=== PATIENT | female | born 1960 | race Caucasian/White ===

== ENCOUNTER 2020-07-29 11:09 | Inpatient (IN) | payer OTHER, MEDICARE ==
[~2020-07-29] VITALS: Ht 167.6 cm; Wt 87.7 kg
--- NOTE | ~2020-07-29 | HC ---
[facility] [place] [address] CONSULTATION Name: BRIANNA CERVANTES Room #: 215-P [facility] IN M.R.#: [id number] Admission: 07/29/20 Attend Phys: Pancho Renteria MD Discharge: 07/31/20 Date of : 60 Report #: [id number] THIS REPORT FOR: cc: [facility] - Clinic physician unknown [facility] - Clinic physician unknown Serafin Cherry MD ~ DOC #: [id number] cc: Pancho Renteria MD, Isabel Childers, CRISTAL Cherry MD DATE OF SERVICE: 07/30/2020 REASON FOR CONSULT: History of metastatic breast cancer and weakness and fall. HISTORY OF PRESENT ILLNESS: The patient is a very pleasant 59-year-old patient of [employer] who is on ixabepilone chemotherapy, who received her most recent dose on 07/21/2020. She had called the office reporting that she has been weaker this last week, more than usual, had been falling having trouble to get up, had scraped her knee and also when she fell evulsed the toenail off of one of her toes and was not sure if it might be broken. We have suggested she come to the emergency room for evaluation. I received a call from the nurse practitioner. The nurse practitioner reported her hemoglobin around 7. The patient was very weak. We discussed possible admission for transfusion and IV fluids and consult rehab services. The patient is now seen the following day after those events from yesterday. The patient denies any headache, any vision changes, any swallowing changes, any fevers or chills, any blood in her urine or stool, any diarrhea or constipation. She does have the generalized weakness. It is not one arm or one leg or left or right side. She described that it does not sound like vertigo or low blood pressure, orthostatic type change. She does still have a sore knee and also sore toe. We note that the x-rays did not reveal any fractures or evidence of osteomyelitis being suggested. She also did receive a unit of blood. Her hemoglobin is now 8. She also has a low white count of 0.6 yesterday and 0.8 today. Past history is notable for the history of metastatic breast cancer since her original diagnosis in 2012 and she was at stage IV diagnosis. She had mets to the brain at the time of diagnosis in 2012. She has been on numerous hormonal agents and chemotherapy agents. She has received radiation therapy to the pelvis in the past. She also has a history of TIA in 2018. Also, has trouble peripheral edema that may have been related to Gemzar. History of diabetes in the past. History of hyperlipidemia. SOCIAL HISTORY: Not currently working. Has a very supportive family. [facility] [address] [place] [address] CONSULTATION Name: BRIANNA CERVANTES Room #: 215-P [facility] IN M.R.#: [id number] Admission: 07/29/20 Attend Phys: Pancho Renteria MD Discharge: 07/31/20 Date of : 60 Report #: [id number] FAMILY HISTORY: With regard to her breast cancer, the patient is also receiving Xgeva for her bones in addition to the ixabepilone. MEDICATIONS: In the hospital currently include pantoprazole 40 mg daily, Lovenox 40 mg daily subcutaneous. Sodium chloride IV fluid. Lortab p.r.n., Tylenol p.r.n., MiraLax p.r.n., Zofran p.r.n., DVT injection, I believe was given. PHYSICAL EXAMINATION: VITAL SIGNS: Height is 5 feet 6 or 167.6 cm, weight 184 pounds or 83.5 kg, blood pressure 145/81, O2 sat 100%, respirations 18, pulse 82, temperature 97. T-max since admission was 99.6. Neurologically, speech and thought patterns normal. Moving upper extremities normally. LUNGS: Clear, without rhonchi, rales or wheezes. Symmetric and unlabored. HEART: Regular rate. NECK: No enlarged lymph nodes in the supraclavicular, cervical, axillary or inguinal region. ABDOMEN: Slightly obese. No masses. EXTREMITIES: Without clubbing, cyanosis. There is a dressing on her knee and her foot. LABORATORY DATA: Here notable for the repeat hemoglobin after , platelets 99, white count 0.8, BUN 8, creatinine 0.7. Liver functions normal. ASSESSMENT AND PLAN: 1. Metastatic breast cancer, on ixabepilone responding, might delay therapy, pending weakness recovery. 2. Anemia. We will check iron, B12, folate, retic count to see if the patient to see if the patient might benefit from Aranesp administration. 3. Neutropenia, should probably consider neutropenic precautions. 4. Thrombocytopenia, most likely due to chemotherapy. Continue serial monitoring. 5. History of lipids. Cholesterol medicines as needed. 6. Weakness. We will most likely see if the patient can ambulate after transfusion with rehabilitation services; if not, may need to consider rehabilitation services or home health. We will follow with you. MD SALVADOR Darling/DANNI/SUBHASH [address] [address] CONSULTATION Name: BRIANNA CERVANTES Room #: 215-P [facility] IN M.R.#: [id number] Admission: 07/29/20 Attend Phys: Pancho Renteria MD Discharge: 07/31/20 Date of : 60 Report #: [id number] By: [id number] [id number] Serafin Cherry MD /nt
[~2020-07-29 11:09] MED LIST: CALCIUM 500 +1 EAC5 PO; CELEXA 10 MG TA10 M1 PO; FISH OIL 1,0001 EAC5 PO; GLUCOPHAGE500 MG PO; LIPITOR 10 MG10 M1 PO; MULTIVITAMINS PO; SINGULAIR 10 MG10 M1 PO; VERAMYST10 GM NS
[2020-07-29 11:12] VITALS: BP 87/53
[2020-07-29 12:37] LABS: ANION GAP 9 mmol/L (7-16); BUN 16 mg/dL (7-18); CALCIUM 8.5 mg/dL (8.5-10.1); CHLORIDE 102 mmol/L (98-107); CO2 24 mmol/L (21-32); CREATININE 0.9 mg/dL (0.6-1.0); GLUCOSE 106 mg/dL (74-106); POTASSIUM 4.1 mmol/L (3.5-5.1); SODIUM 135 mmol/L (136-145)
[2020-07-29 12:39] LABS: HEMOGLOBIN 7.1 gm/dL (12.0-15.0)
[2020-07-29 12:41] LABS: MCH 29.2 pg (26.0-34.0); MCHC 33.9 g/dL (28.0-37.0); PLATELET COUNT 113 thou/uL (150-400); RBC 2.45 mil/uL (4.20-5.00); RDW 19.4 % (10.5-14.5)
[2020-07-29 12:46] LABS: ALBUMIN 3.3 g/dL (3.4-5.0); MAGNESIUM 1.9 mg/dL (1.8-2.4); SGOT 24 U/L (15-37); SGPT 20 U/L (30-65); TOTAL BILIRUBIN 0.6 mg/dL (0.2-1.0); TOTAL PROTEIN 7.1 g/dL (6.4-8.2); TROPONIN-I <0.06 ng/mL (<0.06); WBC 0.6 thou/uL (4.0-11.0)
[2020-07-29 13:31] LABS: ABSOLUTE NEUTROPHILS 0.4 thou/uL (1.4-8.2)
[2020-07-29 13:32] LABS: ANISOCYTOSIS 2+; PLATELET ESTIMATE SLIGHTLY DECREASED
[2020-07-29 13:33] LABS: MACROCYTES FEW; MICROCYTES FEW; OVALOCYTES FEW; POIKILOCYTOSIS 1+
[2020-07-29 13:36] LABS: URINE BILIRUBIN NEGATIVE (Negative); URINE BLOOD NEGATIVE (Negative); URINE CLARITY CLEAR; URINE COLOR YELLOW; URINE GLUCOSE-RANDOM* NEGATIVE (Negative); URINE KETONES NEGATIVE (Negative); URINE LEUKOCYTES-REFLEX NEGATIVE (Negative); URINE NITRITE-REFLEX NEGATIVE (Negative); URINE PROTEIN (DIPSTICK) TRACE (Negative); URINE SPECIFIC GRAVITY 1.015 (1.005-1.035); URINE UROBILINOGEN 0.2 E.U./dl (0.2-1.0)
--- NOTE | 2020-07-29 16:05 | EKG ---
[place] [address] [facility] [address] [place] [address] ELECTROCARDIOGRAM REPORT Name: BRIANNA CERVANTES Room #: 170-1 ADM IN M.R.#: [id number] Admission: 07/29/20 Attend Phys: Pancho Renteria MD Discharge: Date of : 60 Report #: [id number] 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 : 1960 Requested By: Lynda Emmanuel Order Number: [id number] MD: Drew Robles Measurements Intervals [place] Rate: 94 P: 26 RI: 166 QRS: 5 QRSD: 65 T: -13 QT: 415 QTc: 520 Interpretive Statements Sinus rhythm Early R wave progression Nonspecific ST and T wave abnormality Prolonged QT interval Compared to ECG 01/14/2012 12:37:27 Early R wave progression is now present Nonspecific change in the ST and T wave segments Prolonged QT interval now present Electronically Signed On 07-29-2020 16:04:45 CDT by Drew Robles [email or web address] <ELECTRONICALLY SIGNED> By: Drew Robles MD, [facility] 07/29/20 1604 1137 1137 Drew Robles MD, [facility] /EPI
[2020-07-29 16:32] VITALS: BP 112/64
[2020-07-29 16:45] VITALS: BP 112/64
[2020-07-29 17:19] VITALS: BP 120/79
[2020-07-29 17:23] VITALS: BP 127/77
[2020-07-29 20:05] VITALS: BP 124/75
[2020-07-30 01:43] LABS: HEMATOCRIT 23.8 % (37.0-47.0); MCH 29.4 pg (26.0-34.0); MCHC 33.7 g/dL (28.0-37.0); MCV 87.4 fL (80.0-100.0); PLATELET COUNT 99 thou/uL (150-400); RBC 2.73 mil/uL (4.20-5.00); RDW 18.1 % (10.5-14.5)
[2020-07-30 01:45] LABS: CALCIUM 8.1 mg/dL (8.5-10.1); CREATININE 0.7 mg/dL (0.6-1.0); MAGNESIUM 1.7 mg/dL (1.8-2.4); POTASSIUM 3.7 mmol/L (3.5-5.1)
[2020-07-30 01:58] LABS: WBC 0.8 thou/uL (4.0-11.0)
[2020-07-30 04:29] LABS: ABSOLUTE NEUTROPHILS 0.5 thou/uL (1.4-8.2); PLATELET ESTIMATE DECREASED
[2020-07-30 04:45] VITALS: BP 127/71
[2020-07-30 08:06] VITALS: BP 145/81
[2020-07-30 08:42] LABS: % SATURATION 32 % (20-39); IRON 50 ug/dL (50-170); TIBC 158 ug/dL (250-450)
[2020-07-30 08:45] LABS: ABSOLUTE RETIC COUNT 0.0093 10^6/uL; OBSERVED RETIC COUNT 0.34 % (0.6-2.6)
[2020-07-30 10:33] VITALS: BP 123/66
--- NOTE | 2020-07-30 13:44 | NUR ---
WOUND CONSULT; ROUNDING WITH DR RAMSEY TODAY. THE PATIENT HAS HAD A TRAUMA TO THE LEFT GREAT TOE MEASURES 1.0 X 1.0 X 0.1. TENDERNESS IS PRESENT. NO S/S OF INFECTION. DR RAMSEY'S RECOMMENDASTIONS; XEROFORM GAUZE, ROLLED GAUZE, SCURED WITH TAPE CHANGE DAILY.
[2020-07-30 15:21] VITALS: BP 124/81
--- NOTE | 2020-07-30 15:36 | NUR ---
met with patient and spouse at bedside. Patient with stage 4 breast cancer. She admits pancytopenia. Patient resides at home with spouse and son. Sp reports assist patient with adls. They assist with ambulation and bathing. Patients PCP has left [facility] and she see practioner Mj only know last name. Discussed post acute care/rehab unit eval. At this time patient, spouse interested in home health. No preference for home health care. Agreeable to home health care with [facility]. Liason to sp with patient/spouse.
[2020-07-30 20:45] VITALS: BP 135/84
[2020-07-31 04:45] VITALS: BP 117/91
[2020-07-31 06:47] LABS: HEMOGLOBIN 8.5 gm/dL (12.0-15.0)
[2020-07-31 06:48] LABS: CALCIUM 8.1 mg/dL (8.5-10.1); CREATININE 0.6 mg/dL (0.6-1.0); POTASSIUM 3.7 mmol/L (3.5-5.1)
[2020-07-31 06:50] LABS: HEMATOCRIT 24.5 % (37.0-47.0); MCH 29.9 pg (26.0-34.0); MCHC 34.8 g/dL (28.0-37.0); MCV 85.9 fL (80.0-100.0); RBC 2.85 mil/uL (4.20-5.00)
[2020-07-31 07:09] LABS: WBC 1.2 thou/uL (4.0-11.0)
--- NOTE | 2020-07-31 07:29 | NUR ---
ASSUME CARE 1900. PT/VITALS STABLE. DENIES PAIN. POOR TOLERANCE TO ACTIVITY. MIGHT BENEFIT FROM REHAB BEFORE GOING HOME. ASSESSMENT CHARTED. PROGRESSING WELL WITH POC. SR ON MONITOR. PLAN IS POSSIBLE DISCHARGE TODAY FOR FOLLOW UP OUTPATIENT. WBC 1.2/TRENDING UP. WILL CONTINUE TO MONITOR AND FOLLOW WITH POC
[2020-07-31 08:09] VITALS: BP 134/81
[2020-07-31 10:37] VITALS: BP 134/81
--- NOTE | 2020-07-31 11:05 | NUR ---
RD consulted for high protein, low sugar snack options. Metastatic breast cancer pt admit with weakness and falls. Pt reports appetite is fair, does not really like food here but was not ordering from alternative menu. Assisted ordering. Pt uses oral supplement at home. Provided snack options and will order Ensure Max bid. Pt hoping to be discharged soon.
[2020-07-31 11:46] VITALS: BP 129/83
--- NOTE | 2020-07-31 12:26 | NUR ---
WOUND CARE F/U; ROUNDING WITH DR RAMSEY. THE PATIENT HAS A TRAUMATIC INJURY TO THE LEFT GREAT TOE. THE TOE WAS FRAGIALLY ATTATCHED AND THEREFORE NON VIABLE. DR RAMSEY REMOVED THE NAIL WITH MINIMAL TRAUMA AND BLEEDING. APPLIED XEROFORM GAUZE, FOAM, SECURED WITH ROLLED GAUZE. CHANGE M/W/F PRN.
--- NOTE | 2020-07-31 13:46 | NUR ---
[facility] is not able to provide service at pt's address in [place], [place]. Referral faxed and called to [facility] and they can accept. Their liason will call pt to introduce themselves and advise on start of care this Tuesday. Dc orders faxed and confirmed with intake. Pt is going home with spouse today and agreeable to the dc plan.
--- NOTE | 2020-08-01 15:50 | HC ---
[facility] [address] CONSULTATION Name: BRIANNA CERVANTES Room #: 215-P [facility] IN M.R.#: [id number] Admission: 07/29/20 Attend Phys: Pancho Renteria MD Discharge: 07/31/20 Date of : 60 Report #: [id number] THIS REPORT FOR: cc: [facility] - Clinic physician unknown [facility] - Clinic physician unknown Demian Romero MD ~ DOC #: [id number] Demian Romero MD DATE OF SERVICE: 07/30/2020 CHIEF COMPLAINT: Injury to the left great toe. HISTORY OF PRESENT ILLNESS: This is a 59-year-old female patient with a history of breast cancer with metastases to brain, bones and to her left hip. She has undergone chemotherapy and last chemo treatment was 07/21/2020. She has had increasing weakness and poor appetite. She fell at home and ended up evulsing the left great toenail. I have been asked to see her with regard to wound care. PAST MEDICAL HISTORY: Positive for metastatic breast cancer as detailed above, history of anemia, hypotension and frequent falls. MEDICATIONS: Metformin, Lipitor, Os-Donald, montelukast, fluticasone and citalopram. ALLERGIES: No known drug allergies. FAMILY HISTORY: Noncontributory. SOCIAL HISTORY: Patient is , accompanied by her . There is no history of alcohol or tobacco use. She is a former smoker. REVIEW OF SYSTEMS: CONSTITUTIONAL: The patient denies fever, chills or weight loss. NEUROLOGICAL: The patient denies focal weakness, tingling. EYES: The patient denies any visual changes, sinus drainage. ENT: The patient denies earache, nasal drainage, or sore throat. CARDIOVASCULAR: The patient denies chest pain, palpitations, diaphoresis. PULMONARY: The patient denies cough, shortness of breath. GASTROINTESTINAL: The patient denies nausea, vomiting, diarrhea or abdominal pain. NEUROLOGIC: The patient does have pain, avulsion of the left great toenail. Other systems in a 14-point review of systems are negative. PHYSICAL EXAMINATION: VITAL SIGNS: Patient's vital signs at this time include temperature 36.3, pulse [facility] [address] [place] [address] CONSULTATION Name: BRIANNA CERVANTES Room #: [address] [place] [address] [place] [facility].#: [id number] Admission: 07/29/20 Attend Phys: Pancho Renteria MD Discharge: 07/31/20 Date of : 60 Report #: [id number], respiratory rate 18, blood pressure 123/66. GENERAL: This is a well-developed female. The patient appears to be in no distress. HEENT: Head normocephalic. Nose and throat are clear. NECK: Supple. ABDOMEN: Soft. Bowel sounds present. EXTREMITIES: Lower extremities demonstrated easily palpable distal pulses. She has a small avulsion-type injury to the tip of the left great toe as well as the toenail was partially avulsed, although appears to be adherent at this time. I have trimmed the loose epidermis away with iris scissors, which she tolerated well. LABORATORY DATA: Include sodium 134, potassium 3.7, chloride 102, CO2 of 23, BUN 8, creatinine 0.7, glucose 101. White blood cell count 0.8 with a hemoglobin of 8.0. CLINICAL IMPRESSION: 1. Avulsion injury to the left great toe and great toenail with loose skin trimmed. 2. Pancytopenia. 3. Hypertension. 4. History of breast cancer with metastases to back, hip, and brain. RECOMMENDATIONS: At this point in time, we will recommend topical bacitracin, Xeroform gauze, Alexandr gauze daily. May consider removal of the toenail if it becomes looser. I appreciate being asked to see her in consultation. MD LANDON Escalera/LAZARO <ELECTRONICALLY SIGNED> By: Demian Romero MD 08/01/20 1550 1041 0228 Demian Romero MD /nt
== END 2020-07-31 14:00 | disposition home health service (06) | DRG 809 ==
LOC: ER 11:09 → EROBS 15:34 → 2N 15:34
PROVIDERS: Internal Medicine Hematology & Oncology; Nurse Practitioner; Nurse Practitioner Family; ADMIT Hospitalist; ATTEND Hospitalist
PROC: 30233N1 Transfusion of Nonautologous Red Blood Cells into Peripheral Vein, Percutaneous Approach (ICD-10-PCS; principal; 2020-07-29)
DX: D61.810 Antineoplastic chemotherapy induced pancytopenia (principal); D84.89 Other immunodeficiencies; R65.10 Systemic inflammatory response syndrome (SIRS) of non-infectious origin without acute organ dysfunction; C50.919 Malignant neoplasm of unspecified site of unspecified female breast; Z20.822 Contact with and (suspected) exposure to COVID-19; E11.9 Type 2 diabetes mellitus without complications; F12.90 Cannabis use, unspecified, uncomplicated; S91.209A Unspecified open wound of unspecified toe(s) with damage to nail, initial encounter; M25.462 Effusion, left knee; S90.112A Contusion of left great toe without damage to nail, initial encounter; I95.9 Hypotension, unspecified; I10 Essential (primary) hypertension; E78.5 Hyperlipidemia, unspecified; Z87.891 Personal history of nicotine dependence; Z86.73 Personal history of transient ischemic attack (TIA), and cerebral infarction without residual deficits; Z23 Encounter for immunization; W18.39XA Other fall on same level, initial encounter; Y93.89 Activity, other specified; Y92.89 Other specified places as the place of occurrence of the external cause; Y99.8 Other external cause status
CPT/HCPCS: 10081

== ENCOUNTER 2020-09-06 10:27 | Emergency (ER) | payer OTHER, MEDICARE ==
[~2020-09-06] VITALS: Ht 170.2 cm; Wt 83.9 kg
[2020-09-06 12:50] VITALS: BP 131/104
== END 2020-09-06 12:50 | disposition home or self-care (01) ==
LOC: ER 10:27
DX: S80.11XA Contusion of right lower leg, initial encounter (principal); S20.211A Contusion of right front wall of thorax, initial encounter; Z85.3 Personal history of malignant neoplasm of breast; Z90.89 Acquired absence of other organs; Z87.891 Personal history of nicotine dependence; W19.XXXA Unspecified fall, initial encounter; Y93.89 Activity, other specified; Y92.89 Other specified places as the place of occurrence of the external cause; Y99.8 Other external cause status

== ENCOUNTER 2021-04-01 15:18 | Inpatient (IN) | payer OTHER, MEDICARE ==
[~2021-04-01] VITALS: Ht 152.4 cm; Wt 74.9 kg
[2021-04-01 15:19] VITALS: BP 120/75
[2021-04-01 16:09] LABS: HEMATOCRIT 31.4 % (37.0-47.0); HEMOGLOBIN 10.3 gm/dL (12.0-15.0); MCH 27.7 pg (26.0-34.0); MCHC 32.7 g/dL (28.0-37.0); MCV 84.9 fL (80.0-100.0); RBC 3.7 mil/uL (4.20-5.00); RDW 16.1 % (10.5-14.5); WBC 4.2 thou/uL (4.0-11.0)
[2021-04-01 16:22] LABS: ANION GAP 10 mmol/L (7-16); BUN 11 mg/dL (7-18); CALCIUM 8.9 mg/dL (8.5-10.1); CHLORIDE 106 mmol/L (98-107); CO2 24 mmol/L (21-32); CREATININE 0.6 mg/dL (0.6-1.0); GLUCOSE 103 mg/dL (74-106); POTASSIUM 3.8 mmol/L (3.5-5.1); SODIUM 140 mmol/L (136-145)
[2021-04-01 16:33] LABS: ALBUMIN 3.3 g/dL (3.4-5.0); MAGNESIUM 1.7 mg/dL (1.8-2.4); PHOSPHORUS 4.2 mg/dL (2.6-4.7); SALICYLATE < 2.8 mg/dL (2.8-20.0); SGOT 22 U/L (15-37); SGPT 18 U/L (14-59); TOTAL BILIRUBIN 0.2 mg/dL (0.2-1.0); TOTAL PROTEIN 7.2 g/dL (6.4-8.2)
[2021-04-01 23:07] VITALS: BP 110/77
--- NOTE | 2021-04-01 23:11 | NUR ---
Pt care assumed. Pt confused, but able to answer simple questions occasionally yells when no one in room. Vitals stable. Pt scheduled for surgery in AM.
[2021-04-02 02:46] VITALS: BP 136/79
--- NOTE | 2021-04-02 07:43 | EKG ---
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 : 1960 Requested By: Hai Mann Order Number: [id number] MD: Elie Soria Measurements Intervals [place] Rate: 74 P: 39 UT: 176 QRS: 1 QRSD: 104 T: 4 QT: 417 QTc: 463 Interpretive Statements Sinus rhythm Low voltage, precordial leads Compared to ECG 07/29/2020 11:37:56 Low QRS voltage now present Poor R-wave progression no longer present ST (T wave) deviation no longer present Prolonged QT interval no longer present Electronically Signed On 04-02-2021 7:43:32 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 /EPI
[2021-04-02 08:19] VITALS: BP 154/96
[2021-04-02 11:26] LABS: URINE BILIRUBIN NEGATIVE (Negative); URINE BLOOD 2+ (Negative); URINE COLOR YELLOW; URINE GLUCOSE-RANDOM* NEGATIVE (Negative); URINE KETONES NEGATIVE (Negative); URINE PROTEIN (DIPSTICK) NEGATIVE (Negative); URINE UROBILINOGEN 0.2 E.U./dl (0.2-1.0)
[2021-04-02 11:31] LABS: URINE CLARITY HAZY; URINE LEUKOCYTES-REFLEX 3+ (Negative); URINE NITRITE-REFLEX POSITIVE (Negative)
[2021-04-02 11:49] LABS: SQUAMOUS 0-3 Few /LPF (0-3); URINE WBC-REFLEX >25 Many /HPF (0-5)
[2021-04-02 11:50] LABS: BACTERIA-REFLEX >30 Many /HPF (None Seen); CASTS None Seen /LPF (None Seen); CRYSTALS None Seen /LPF (None Seen); URINE RBC 3-10 Few /HPF (NONE SEEN)
[2021-04-02 11:57] LABS: AMP/METHAMP Negative (Negative); BARBITURATES Negative (Negative); BENZODIAZEPINES Negative (Negative); COCAINE Negative (Negative); METHADONE Negative (Negative); OPIATES POSITIVE (Negative); PCP Negative (Negative)
[2021-04-03 03:00] VITALS: BP 132/79
[2021-04-03 09:30] VITALS: BP 140/80
--- NOTE | 2021-04-03 11:01 | HC ---
[facility] [place] [address] CONSULTATION Name: BRIANNA CERVANTES Room #: 170-18 ADM IN M.R.#: [id number] Admission: 04/01/21 Attend Phys: Yvan Schmitt MD Discharge: Date of : 60 Report #: [id number] THIS REPORT FOR: cc: Serafin Cherry MD, Richard James MD McKittrick, Richard James MD ~ cc: Yvan Schmitt MD, Nuha Tenorio, Deana Adamson DO REASON FOR CONSULT: Altered mental status in a patient with metastatic breast cancer. HISTORY OF PRESENT ILLNESS: The patient is a 60-year-old female well known to me with a history of breast cancer for about the last 8 years, who we have been in contact with over the last several days. We had last seen her in the office about 5 weeks ago and we have been receiving phone calls that she was having progressive weakness and especially, more suppressed with altered mental status from a visit by the Physical Therapist a day or two ago. Because of this, we have suggested to come to the emergency room. Here, she has had a CAT scan that shows right and left-sided vasogenic edema. Unclear if it is new, because we do not have outside films. Her blood counts look fairly good. Her urine is currently pending. She does have some cloudy-looking urine in the urinal. She has a Orozco catheter in place. The patient, and some of the history is provided by her , has had some hip pain off and on. She also was fuzzy yesterday and also more weaker than usual. No known fevers or chills. Does have constipation. No diarrhea. Does have some urgency. Has maybe have some darker-colored urine by their description. No new skin rash. No new arm or leg swelling. Past history notable for the breast cancer that was metastatic at the time of diagnosis in March of 2013. At that time, she had bone and brain metastasis. She completed radiation therapy to her head, was on tamoxifen for several weeks. Poorly tolerated. Then Arimidex very poorly tolerated. Then on Faslodex, beginning in 09/2013. In 09/2015, she had progressive disease. The tumor was still ER positive, HER-2/audelia negative. She then was on Xeloda for a period of time. In 04/2016, she was on Doxil for a period of time that I believe was switched to Taxol in 01/2017. She had progressive neuropathy and this was changed in 10/2017. She then began abemaciclib. She also has been on Gemzar for a while. She also had been on Navelbine, ixabepilone, which was held in 12/2020 due to progressive neuropathy. She also has a history of neuropathy related to that. She has a history of brain mets. She had whole brain radiation therapy in the past. She has also had treatments of several of her brain lesions including the skull. She had last seen Dr. Tenorio this fall. Last MRI back in 12/2020 had talked about necrotic enhancement in the left temporal tip and decrease in size of right frontal lobe lesion, but also a punctate lesion nearby. She also has a history of depression, diabetes, [facility] [address] [place] [address] CONSULTATION Name: BRIANNA CERVANTES Room #: 170-18 [facility] IN M.R.#: [id number] Admission: 04/01/21 Attend Phys: Yvan Schmitt MD Discharge: Date of : 60 Report #: [id number] hyperlipidemia and cervical conization in the past. SOCIAL HISTORY: She is a former smoker, quit in 2013. No alcohol. No street drugs. FAMILY HISTORY: Breast cancer in her mother and maternal aunt and a paternal grandmother. Has a very supportive . PHYSICAL EXAMINATION: GENERAL: The patient appears her stated age. She is in the emergency room holding area in the hallway. VITAL SIGNS: Her most recent height is reported as 5 feet 7 inches, which is 170.2 cm, weight 185 pounds or 83.9 kilograms. Blood pressure is 136/79, O2 sat 96%, pulse 86, afebrile. HEENT: Her face is symmetrical. She is somewhat sleepy. Oropharynx appears to be clear. LUNGS: Clear. HEART: Regular rate. LYMPHATIC: No enlarged lymph nodes in the supraclavicular, cervical, axillary or inguinal region. ABDOMEN: Slightly obese. No masses, nontender on exam. EXTREMITIES: Have some trace edema. No unusual excoriations, ulcerations or ecchymosis. Orozco catheter in place. NEUROLOGY: She can move arms and legs. She can tell me who she is, where we are. She knows my name. Seems a bit slow and fuzzy. Her thinks maybe she is a bit better than yesterday, but not sure. MEDICATIONS: At this time in the hospital include: Singulair 10 mg daily, fluticasone nasal spray daily, magnesium hydroxide p.r.n., bisacodyl daily p.r.n., atorvastatin 10 mg daily, dexamethasone 6 mg IV q. 8, fentanyl 25 mcg p.r.n., oxycodone had been given, now held. LABORATORY DATA: Notable for a white count of 42, hemoglobin 10.3, platelets 241. Chemistries had a creatinine of 0.6. Note that lactate was 0.6, magnesium 1.7. Transaminases, alkaline phosphatase and total bilirubin normal. Albumin 3.3. Urine has not yet received. ASSESSMENT AND PLAN: 1. Altered mental status with CAT scan changes. Agree with plans for MRI. Note that we are also getting films from at for comparison. It looks like on reports she has had some areas of abnormality, both these frontal and temporoparietal region, so we need to clarify. I agree with steroids at this point. Also, await urine sample to see if she may have a urinary tract infection. 2. Metastatic breast cancer, has been off therapy due to poor tolerance. [address] [address] CONSULTATION Name: BRIANNA CERVANTES Room #: 170-18 ADM IN M.R.#: [id number] Admission: 04/01/21 Attend Phys: Yvan Schmitt MD Discharge: Date of : 60 Report #: [id number] 3. General prognosis. I have previously discussed and discussed with the patient's away from the patient, that I am very worried that this could be a sign of further decline. I am not sure how well she will recover. We will wait to see if we find in general. He agrees with the concept about not doing CPR or mechanical ventilation, but he would like to continue supporting her as best as possible. We also talked about possible involvement of hospice at the time of discharge. 4. Urinary abnormalities. Agree with Orozco catheter. Await UA, possible reflex culture results. Would probably be beneficial to have Orozco at home when she discharges. 5. Constipation. Continue Dulcolax, will make milk of magnesia available. 6. Weakness. Continue rehabilitation services. 7. Hyperlipidemia. Continue atorvastatin. 8. Hip and other pains. Fentanyl and opiates as needed. 9. History of transient ischemic attack. No recent signs. 10. Bony metastasis, has been on Xgeva in the past. 11. Anemia. We will continue following at this time. <ELECTRONICALLY SIGNED> By: Serafin Cherry MD 04/03/21 1101 0728 0759 Serafin Cherry MD /nt
[2021-04-03 11:44] LABS: HEMATOCRIT 33.1 % (37.0-47.0); HEMOGLOBIN 10.7 gm/dL (12.0-15.0); MCH 27.3 pg (26.0-34.0); MCHC 32.3 g/dL (28.0-37.0); MCV 84.6 fL (80.0-100.0); RBC 3.91 mil/uL (4.20-5.00); RDW 16.3 % (10.5-14.5); WBC 8.9 thou/uL (4.0-11.0)
[2021-04-03 12:06] LABS: CALCIUM 9.1 mg/dL (8.5-10.1); CREATININE 0.7 mg/dL (0.6-1.0); MAGNESIUM 2.1 mg/dL (1.8-2.4); POTASSIUM 3.5 mmol/L (3.5-5.1)
[2021-04-03 13:30] VITALS: BP 116/63
[2021-04-03 13:54] VITALS: BP 140/80
[2021-04-03 15:26] VITALS: BP 111/63
--- NOTE | 2021-04-03 15:54 | NUR ---
1500: PT TRANSFERRED VIA BED TO ROOM 405 AT THIS TIME. FAMILY PRESENT AT TIME OF TRANSFER AND UPDATED ON CHANGE TO POC.
--- NOTE | 2021-04-03 16:09 | NUR ---
PATIENT ARRIVED TO AT 1510, LOVELACE PLACED WHEN SHE ADMITTED ON 04/01/21 IS INTACT. PATIENT IS ALERT TO SELF AND KNOW WHERE SHE AT, BUT NOT KNOWING THE DATE OR WHAT REASON SHE CAME TO THE HOSPITAL. NO PAIN. SPOUSE AT THE BEDSIDE, CALL LIGHT WITHIN REACH, WILL CONTINOUS MONITORING
[2021-04-03 20:13] VITALS: BP 123/63
[2021-04-04 00:06] VITALS: BP 116/63
[2021-04-04 04:41] VITALS: BP 101/52
[2021-04-04 07:30] VITALS: BP 116/66
[2021-04-04 12:00] VITALS: BP 115/67
--- NOTE | 2021-04-04 12:24 | NUR ---
A/O X 4. ROOM AIR. BEDREST. LEFT AC PIV. LOVELACE IN PLACE. INCONT OF STOOLS. SINUS CORINA 58 BPM. NO PAIN NOTED. STATES SHE DOES NOT TAKE FLONASE OR MONTELUKAST AT HOME AND REFUSED THOSE MEDS. HER MOTHER IS AT BEDSIDE. DNR. BEDREST. PO MEDS WHOLE.
[2021-04-04 16:30] VITALS: BP 127/75
[2021-04-04 20:15] VITALS: BP 100/54
[2021-04-05 04:45] VITALS: BP 115/54
[2021-04-05 07:45] VITALS: BP 131/65
--- NOTE | 2021-04-05 07:48 | NUR ---
PT LYING IN BED. PERCOCET PROVIDING PAIN RELIEF. RESTING COMFORTABLY. NO NEEDS VOICED. CALL LIGHT WITHIN REACH. FREQUENT OBSERVATION.
[2021-04-05 12:00] VITALS: BP 133/78
[2021-04-05 16:00] VITALS: BP 113/70
[2021-04-05 19:51] VITALS: BP 112/64
[2021-04-06 03:54] VITALS: BP 116/63
[2021-04-06 07:45] VITALS: BP 130/71
[2021-04-06 12:20] VITALS: BP 126/69
--- NOTE | 2021-04-06 16:11 | NUR ---
PATIENT ADMITTED FOR CONFUSION AND BRAIN METS CA. CHART REVIEWED AND DISCUSSED WITH CARE TEAM. CM MET WITH PT THIS DAY. PTS MOM AT SIDE. CM ROLE INTRODUCED. PTS MOM REQUEST THIS CM CALL PTS FOR NAME OF CURRENT PALLATIVE TREATMENT PT IS RECEIVING AT THIST TIME. SPOKE TO ANDREA PTS SPOUSE. HE REPORTS PT CURRENTLY RECIEVING PALLIATIVE TMT WITH [facility]. THIS CM SPOKE TO CELENA WITH [facility] AND HE REPORTS THEY WILL ACCEPT PT BACK WITH HOSPICE SERVICES. THIS CM LET DR STOVALL KNOW. CELENA MADE AWARE PT MAY BE MEDICALLY STABLE TO DC TOMORROW. NOTIFY CELENA AT [phone] WHEN PT DCS AND FAX ORDERS TO [phone]. PTS INFORMED THIS CM HE HAS AN APPT IN THE AM FOR DETACHED RETINA. HE ANTICIPATES BEING THERE FOR UP TO 3 HOURS. SHOULD PT DC TOMORROW HE IS UNAWARE OF HIS RESTRICTIONS AFTER TOMRROW BUT PLAN TO HAVE HIS SON WHO LIVES IN THE HOME ASST PT OR DAUGHTER FROM [place] WILL COME UP IF NECESSARY. PT LIVES AT HOME WITH AND SON. FAMILY SUPPORT PT AND ASSIST WITH LIFTING PT AND TRANSFERRING HER TO MOTORIZED W/C. SHE DOES USE A BSC. CLINICAL UPDATES FAXED TO [facility]. CM WILL CONITINUE TO FOLLOW.
[2021-04-06 16:40] VITALS: BP 122/69
[2021-04-06 20:24] VITALS: BP 129/75
[2021-04-07 05:25] VITALS: BP 103/58
--- NOTE | 2021-04-07 06:46 | NUR ---
ASSUMED CARE OF PT AT 1900. PT ASSESSED TO BE AOX4 60F PRESENTING WITH BRAIN CANCER. PT WAS ABLE TO REST QUIETLY THROUGHOUT THE NIGHT IN BED WITH NO COMPLAINTS, VSS. PT IS STABLE ON 2-3L 02, RUNS CORINA IN THE LOW 40S WHILE ASLEEP, LOVELACE PATENT, AND L AC IV SL. PT IV REDRESSED FOR SECURITY, WILL CONT TO MONITOR.
[2021-04-07 08:00] VITALS: BP 120/61
[2021-04-07 12:43] VITALS: BP 120/61
--- NOTE | 2021-04-07 16:25 | NUR ---
[facility] selected by pt/family. They have evaluated and can accept the pt for admission at home later today. They have arranged for a hospital bed to be delievered to the home and pt's spouse has confirmed back that it has arrived. Pt agreeable to dc home today with hospice and signed an Outside the Hospital DNR form which has been signed by the attending as well. The original will be sent home with the pt today. Pt is max assist and can not tolerate riding in a w/c or car. [facility] too busy with 911 calls so cm vouched stretcher transport to her home per [facility] at 6:30 to 7. [facility] Pt to go home with her srinivasan cath.
--- NOTE | 2021-04-07 18:51 | NUR ---
PT DISCHARGED TO [facility] THIS AFTERNOON AT 1850. ALL PATIENT BELONGINGS ARE WITH HER.
== END 2021-04-07 18:53 | disposition hospice, home (50) | DRG 689 ==
LOC: ER 15:18 → EROBS 18:23 → 2N 18:23 → EROBS 04-03 08:21 → 2N 04-03 14:56
PROVIDERS: Emergency Medicine; ADMIT Internal Medicine; ATTEND Internal Medicine
DX: N39.0 Urinary tract infection, site not specified (principal); G93.41 Metabolic encephalopathy; C79.31 Secondary malignant neoplasm of brain; C50.919 Malignant neoplasm of unspecified site of unspecified female breast; Z20.822 Contact with and (suspected) exposure to COVID-19; K59.00 Constipation, unspecified; D64.9 Anemia, unspecified; E78.5 Hyperlipidemia, unspecified; Z66 Do not resuscitate; M25.559 Pain in unspecified hip; B96.20 Unspecified Escherichia coli [E. coli] as the cause of diseases classified elsewhere; R33.9 Retention of urine, unspecified; Z87.891 Personal history of nicotine dependence; Z80.3 Family history of malignant neoplasm of breast; Z86.73 Personal history of transient ischemic attack (TIA), and cerebral infarction without residual deficits; Z79.899 Other long term (current) drug therapy; Z51.5 Encounter for palliative care
CPT/HCPCS: 10081